=== PATIENT | female | born 1970 | race Hispanic/Latino ===

== ENCOUNTER → 2024-02-28 07:59 | Outpatient (REF) | payer OTHER, SELFPAY ==
[2024-02-28 09:23] LABS: Hematocrit 33.5 % (37.0-47.0); Hemoglobin 10.8 g/dL (12.0-16.0); Mean Corp Hgb Conc. 32.2 g/dL (33.0-37.0); Mean Corpuscular Hgb 24.5 pg (27.0-31.0); Mean Platelet Volume 9.2 fL (7.4-10.4); Platelet Count 422 10^3/uL (130-400); Red Blood Cell Count 4.41 10^6/uL (4.20-5.40); Red Cell Dist. Width 15.3 % (11.5-14.5); Reticulocyte Count 1.8 % (0.4-2.8)
[2024-02-28 10:01] LABS: ALT (SGPT) 46 U/L (0-35); AST (SGOT) 36 U/L (14-36); Albumin 4.3 g/dl (3.5-5.0); Alkaline Phosphatase 119 U/L (38-126); Blood Urea Nitrogen 15 mg/dl (7-17); Calcium 9.3 mg/dl (8.4-10.2); Carbon Dioxide 21 mmol/L (22-30); Chloride 109 mmol/L (98-107); GGTP 124 U/L (12-43); Glucose 99 mg/dl (70-99); Iron 44 ug/dl (37-170); Potassium 3.9 mmol/L (3.5-5.1); Sodium 136 mmol/L (135-145); Total Bilirubin 0.4 mg/dl (0.2-1.3); Total Protein 6.8 g/dl (6.3-8.2); eGFR > 60.00
[2024-02-28 10:07] LABS: Vitamin D, 25-OH*** 32.9 ng/mL (30-80)
[2024-02-28 10:10] LABS: Percent Saturation 10 % (20-50); Total Iron Binding Capacity 431 ug/dl (265-497)
[2024-02-28 10:26] LABS: Ferritin 7.8 ng/ml (11.1-264.0)
[2024-02-28 10:40] LABS: Vitamin B12 > 1000 pg/ml (239-931)
== END ==
LOC: CLINIC 07:59
PROVIDERS: ATTENDING PHYSICIAN Nurse Practitioner Adult Health
DX: R94.5 Abnormal results of liver function studies (principal); D50.0 Iron deficiency anemia secondary to blood loss (chronic); N93.9 Abnormal uterine and vaginal bleeding, unspecified; E55.9 Vitamin D deficiency, unspecified
CPT/HCPCS: 36415; 80053; 82306; 82607; 82728; 82977; 83540; 83550; 84443; 85027; 85045

== ENCOUNTER → 2024-03-12 07:03 | Outpatient (REF) | payer OTHER, SELFPAY | LOC: WDC 07:03 | PROVIDERS: ATTENDING PHYSICIAN Nurse Practitioner Adult Health | DX: Z12.31 Encounter for screening mammogram for malignant neoplasm of breast (principal) | CPT/HCPCS: 77063; 77067 ==

== ENCOUNTER 2024-03-28 09:33 | Emergency (ER) | payer SELFPAY ==
[2024-03-28 09:35] VITALS: BP 119/77
[2024-03-28 10:08] VITALS: BP 134/67
[2024-03-28 10:12] LABS: Urine Albumin Negative (Neg - Trace); Urine Bilirubin Negative (Negative); Urine Character Clear (Clear); Urine Color Yellow; Urine Glucose Negative (Negative); Urine Ketone Negative (Negative); Urine Leukocyte Negative (Negative); Urine Nitrite Negative (Negative); Urine Occult Blood 4+ (Negative); Urine Specific Gravity 1.015 (<1.030); Urine Urobilinogen Negative (Neg - 1+)
[2024-03-28 10:54] LABS: Urine Squamous Cell 21-25 /LPF (Few)
[2024-03-28 10:55] LABS: Urine Amorphous Seen; Urine White Cell 0-2 /HPF (0-5)
[2024-03-28 11:00] VITALS: BP 126/70
[2024-03-28 11:02] LABS: % Basophils 0.8 % (0-2); % Eosinophils 2.3 % (0-6); % Immature Granulocytes 0.3 % (0-0.5); % Lymphocytes 20.5 % (20.5-51.1); % Monocytes 9.3 % (1.7-9.3); % Neutrophils 66.8 % (42.2-75.2); Absolute Basophils 0.1 10^3/uL (0-0.2); Absolute Eosinophils 0.1 10^3/uL (0-0.7); Absolute Lymphocytes 1.2 10^3/uL (1.2-3.4); Absolute Monocytes 0.6 10^3/uL (0.1-0.6); Hematocrit 33.9 % (37.0-47.0); Hemoglobin 11.3 g/dL (12.0-16.0); Mean Corp Hgb Conc. 33.3 g/dL (33.0-37.0); Mean Corpuscular Hgb 25.4 pg (27.0-31.0); Mean Corpuscular Volume 76.2 fL (81.0-99.0); Mean Platelet Volume 8.8 fL (7.4-10.4); Nucleated Red Blood Cells % 0 %; Platelet Count 385 10^3/uL (130-400); Red Blood Cell Count 4.45 10^6/uL (4.20-5.40); Red Cell Dist. Width 16.8 % (11.5-14.5)
[2024-03-28 11:12] LABS: HCG, Serum Qualitative Screen Negative
[2024-03-28 11:17] LABS: ALT (SGPT) 33 U/L (0-35); AST (SGOT) 28 U/L (14-36); Albumin 4.3 g/dl (3.5-5.0); Alkaline Phosphatase 117 U/L (38-126); Blood Urea Nitrogen 12 mg/dl (7-17); Calcium 9.3 mg/dl (8.4-10.2); Carbon Dioxide 22 mmol/L (22-30); Chloride 107 mmol/L (98-107); Glucose 125 mg/dl (70-99); Potassium 3.9 mmol/L (3.5-5.1); Sodium 139 mmol/L (135-145); Total Bilirubin 0.3 mg/dl (0.2-1.3); Total Protein 6.9 g/dl (6.3-8.2); eGFR > 60.00
[2024-03-28 13:10] VITALS: BP 128/72
[2024-03-28 14:06] VITALS: BP 126/83
--- NOTE | 2024-03-28 14:53 | ED.GENMED ---
History of Present Illness
General
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
Source: patient and family
Exam Limitations: none
Time Seen by Provider: 03/28/24 10:31
Nursing documentation reviewed up to this point in time: agreed with
Travel History
Have you had any contact with someone who has COVID-19?: No
Do you have any symptoms of coronavirus? Fever > 100 degrees, chills, cough, shortness of breath, sore throat, loss of taste or smell, muscle aches, or headache?: No
History of Present Illness
History of Present Illness:
53-year-old female presenting to the emergency department today with concerns of light vaginal bleeding over the past 2 weeks also has had some pressure and cramping to the vaginal area and lower abdomen. This has been present denies being very
severe. She has not seen a financial wellness coach in multiple years.
Past History
Past History
ED Past Medical History: Other (Migraine headaches)
ED Past Surgical History:
Patient has exhibited threatening behavior?: No
Social History
Tobacco: Non-smoker
Alcohol: None
Drug: None
Personal:
Living: with family
Employment: Employed (house cleaning)
Family History
Family History: Other
Review of Systems
Review of Systems
Allergies reviewed?: Yes
All Other Systems: ROS reviewed and negative except as documented in HPI and ROS
Phy Exam
Physical Exam
Physical Exam:
GENERAL: Alert , in no apparent distress
EYE: pupils equal and reactive
NECK: Supple, no significant adenopathy.
ENT: o/p clr, mmm.
CARDIAC: Regular rate and rhythm .
LUNGS: Clear breath sounds bilaterally, no acute respiratory distress, no wheezes/rales/rhonchi
ABDOMEN: Pelvic exam with some mild discomfort throughout but no specific focal tenderness soft, without focal tenderness, no r/g, no cvat
NEUROLOGICAL: Alert and oriented, no focal neuro deficits
SKIN: Warm and dry, skin intact.
MUSCULOSKELETAL: No edema, well perfused.
PSYCH: Normal and appropriate interaction.
Course
Orders/Labs/Results
Orders:
Orders
03/28/24 10:03
Urinalysis Reflex To Culture Urgent
Date Specimen was Collected: 03/28/24
Time Specimen was Collected: 10:01
Urine Microscopic Reflex Cult Urgent
03/28/24 10:49
Test Result ONCE
US Pelvis Only (non-obstetric) Urgent
Comment:
Reason For Exam: right peliv pain/bleeding
03/28/24 10:53
Complete Blood Count/With Diff Urgent
Comprehensive Metabolic Panel Urgent
HCG, Serum Qualitative Screen Urgent
Abnormal Lab Results
03/28/24 03/28/24
10:03 10:53
Hgb 11.3 L g/dL
(12.0-16.0)
Hct 33.9 L %
(37.0-47.0)
MCV 76.2 L fL
(81.0-99.0)
MCH 25.4 L pg
(27.0-31.0)
RDW 16.8 H %
(11.5-14.5)
Glucose 125 H mg/dl
(70-99)
Ur Occult Blood Reflex 4+ A
(Negative)
Urine RBC 3-6 A /HPF
(0-2)
03/28/24 10:53
03/28/24 10:53
Vital Signs
Initial and Last Documented VS:
Initial Vital Signs
Temp Pulse Resp BP Pulse Ox
98.1 F 120 18 119/77 99
03/28/24 09:35 03/28/24 09:35 03/28/24 09:35 03/28/24 09:35 03/28/24 09:35
Last Documented Vital Signs
Temp Pulse Resp BP Pulse Ox
98.4 F 110 16 126/83 99
03/28/24 10:09 03/28/24 10:09 03/28/24 10:09 03/28/24 14:06 03/28/24 14:06
MDM/Problems Addressed
MDM/Problems Addressed:
53-year-old female presenting to the emergency department today with concerns of vaginal bleeding described as small amount over the past 2 weeks and cramping ongoing. Here she has some discomfort throughout the pelvic examination minimal
discomfort to the lower abdomen. Ultrasound performed that shows a fibroid uterus but no signs of emergent process.. She was advised for close gynecologic follow-up. Otherwise return precautions given
*Critical Care Note
Total Time (30-74mins, 75-104mins- exclusive of procedures): Not Applicable
ED Attending Note
-
Portions of this chart may have been created with voice recognition software.� Occasional wrong word or��sound alike� substitutions may have occurred due to the inherent limitations of voice recognition software.
Discharge Plan
Departure
Patient Disposition: Home (Routine Discharge)
Date of Disposition: 03/28/24
Time of Disposition: 14:59
Patient with high blood pressure during this ER visit?: No
Condition: Good
Covid-19: Not Applicable
Discharge Problem:
Fibroid uterus
Instructions: Uterine Fibroids (DC)
Prescriptions:
No Action
escitalopram oxalate 10 MG tablet
25 mg PO DAILY
Referrals:
Viviane Loza MD [Active] - Follow up in 5-7 days
Maral Rodriguez NP [Family Provider] -
Activity Restrictions/Additional Instructions:
You came to the emergency department today with concerns of bleeding and discomfort in the pelvic area. Please follow closely with gynecology. Your ultrasound showed fibroids. You can take Motrin for discomfort. Return to the emergency
department for any worsening, new or concerning symptoms.
Interventions
Interventions:
*Risk Screen - Suicide Last Done: 03/28/24 09:37
*General Assessment Last Done: 03/28/24 09:37
*Neglect/Abuse Screening Last Done: 03/28/24 09:37
*ED COVID-19 Vaccine History Last Done: 03/28/24 09:58
ED-Female Genitourinary Assessment Last Done: 03/28/24 10:05
Discharge Date and Time
Print Language: TURKISH
== END 2024-03-28 15:06 | disposition home or self-care (01) ==
LOC: EMR 09:33
PROVIDERS: Physician Assistant; EMERGENCY PHYSICIAN Emergency Medicine; FAMILY PHYSICIAN Nurse Practitioner Adult Health
DX: D25.9 Leiomyoma of uterus, unspecified (principal)
CPT/HCPCS: 99284; 76856; 80053; 81003; 81015; 84703; 85025

== ENCOUNTER → 2024-07-01 06:50 | Outpatient (REF) | payer OTHER, SELFPAY ==
[2024-07-01 09:41] LABS: Hematocrit 37.9 % (37.0-47.0); Hemoglobin 12.7 g/dL (12.0-16.0); Mean Corp Hgb Conc. 33.5 g/dL (33.0-37.0); Mean Corpuscular Hgb 26.5 pg (27.0-31.0); Mean Corpuscular Volume 79.1 fL (81.0-99.0); Mean Platelet Volume 9.3 fL (7.4-10.4); Platelet Count 347 10^3/uL (130-400); Red Blood Cell Count 4.79 10^6/uL (4.20-5.40); Red Cell Dist. Width 14.1 % (11.5-14.5); White Blood Cell Count 4.8 10^3/uL (4.8-10.8)
[2024-07-01 10:17] LABS: ALT (SGPT) 38 U/L (0-35); AST (SGOT) 36 U/L (14-36); Albumin 4.4 g/dl (3.5-5.0); Alkaline Phosphatase 144 U/L (38-126); Blood Urea Nitrogen 10 mg/dl (7-17); Calcium 9.4 mg/dl (8.4-10.2); Carbon Dioxide 24 mmol/L (22-30); Chloride 107 mmol/L (98-107); Glucose 99 mg/dl (70-99); Potassium 4.2 mmol/L (3.5-5.1); Sodium 139 mmol/L (135-145); Total Bilirubin 0.3 mg/dl (0.2-1.3); Total Protein 6.8 g/dl (6.3-8.2); eGFR > 60.00
== END ==
LOC: REG 06:50
PROVIDERS: ATTENDING PHYSICIAN Nurse Practitioner Adult Health
DX: D50.0 Iron deficiency anemia secondary to blood loss (chronic) (principal); R94.5 Abnormal results of liver function studies
CPT/HCPCS: 36415; 80053; 82270; 85027

== ENCOUNTER → 2024-10-23 10:30 | Outpatient (REF) | payer OTHER, SELFPAY | LOC: RAD 10:30 | PROVIDERS: ATTENDING PHYSICIAN Obstetrics & Gynecology Gynecology | DX: N93.9 Abnormal uterine and vaginal bleeding, unspecified (principal); D21.9 Benign neoplasm of connective and other soft tissue, unspecified | CPT/HCPCS: 58340; 76831 ==

== ENCOUNTER 2024-11-26 14:01 | Emergency (ER) | payer SELFPAY ==
[2024-11-26 14:10] VITALS: BP 136/87
[2024-11-26 14:33] LABS: % Basophils 0.8 % (0-2); % Eosinophils 3.6 % (0-6); % Immature Granulocytes 0.3 % (0-0.5); % Lymphocytes 28.8 % (20.5-51.1); % Monocytes 7.5 % (1.7-9.3); Absolute Basophils 0.1 10^3/uL (0-0.2); Absolute Eosinophils 0.3 10^3/uL (0-0.7); Absolute Lymphocytes 2.2 10^3/uL (1.2-3.4); Absolute Monocytes 0.6 10^3/uL (0.1-0.6); Absolute Neutrophils 4.6 10^3/uL (1.4-6.5); Hematocrit 39.1 % (37.0-47.0); Hemoglobin 13.1 g/dL (12.0-16.0); Mean Corp Hgb Conc. 33.5 g/dL (33.0-37.0); Mean Corpuscular Volume 80.5 fL (81.0-99.0); Mean Platelet Volume 9.3 fL (7.4-10.4); Nucleated Red Blood Cells % 0 %; Platelet Count 338 10^3/uL (130-400); Red Blood Cell Count 4.86 10^6/uL (4.20-5.40); Red Cell Dist. Width 14.1 % (11.5-14.5); White Blood Cell Count 7.8 10^3/uL (4.8-10.8)
[2024-11-26 14:47] LABS: ALT (SGPT) 51 U/L (0-35); AST (SGOT) 36 U/L (14-36); Albumin 4.7 g/dl (3.5-5.0); Alkaline Phosphatase 138 U/L (38-126); Blood Urea Nitrogen 11 mg/dl (7-17); Calcium 9.2 mg/dl (8.4-10.2); Carbon Dioxide 21 mmol/L (22-30); Chloride 99 mmol/L (98-107); Glucose 116 mg/dl (70-99); Potassium 3.8 mmol/L (3.5-5.1); Sodium 135 mmol/L (135-145); Total Bilirubin 0.5 mg/dl (0.2-1.3); Total Protein 7.1 g/dl (6.3-8.2); eGFR > 60.00
[2024-11-26 16:55] VITALS: BMI 23.2
[2024-11-26 16:56] VITALS: BP 155/75
[2024-11-26 17:06] VITALS: BP 125/78
[2024-11-26 18:29] LABS: D-Dimer < 0.27 ug/mlFEU (0.00-0.50)
[2024-11-26 18:39] LABS: Troponin I < 0.012 ng/ml
[2024-11-26 18:57] LABS: TSH Reflex To Free T4 2.38 uIU/ml (0.47-4.68)
[2024-11-26 19:00] VITALS: BP 129/76
[2024-11-26 19:29] VITALS: BP 131/79
[2024-11-26] MEDS: TOPROL XL 12.5 MG PO (19:30)
--- NOTE | 2024-11-26 20:21 | ED.GENMED ---
History of Present Illness
General
Chief Complaint: Heart Rate Problem
Source: patient and family
Exam Limitations: none
Time Seen by Provider: 11/26/24 16:37
Nursing documentation reviewed up to this point in time: agreed with
History of Present Illness
History of Present Illness:
54-year-old female with past medical history of anxiety who presents to the ER with her family for evaluation of palpitations and tachycardia. 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
arrival. After making the bed she says that she began to feel palpitations and her heart racing. She says that she gets the symptoms with anxiety occasionally and typically they resolve with a deep breath and so she took a few deep breaths but
symptoms were not resolving. She then went down to her car and took a dose of her as needed alprazolam which was prescribed by her primary doctor as needed for severe panic/anxiety. She took a dose of alprazolam but this did not improve her
symptoms at all and so she came to the ER to be evaluated. She says that on arrival in the ER she was still symptomatic but by the time of my assessment her symptoms have completely resolved. She said she did have some mild dizziness during the
episode but did not have any chest pain, shortness of breath. She was in her normal state of health prior to onset. She says she has no known cardiac history and has never seen a field installation technician.
Past History
Past History
ED Past Medical History: Other (Migraine headaches)
ED Past Surgical History:
Patient has exhibited threatening behavior?: No
Social History
Tobacco: Non-smoker
Alcohol: None
Drug: None
Personal:
Living: with family
Employment: Employed (house cleaning)
Family History
Family History: Other
Review of Systems
Review of Systems
All Other Systems: ROS reviewed and negative except as documented in HPI and ROS
Constitutional: Denies fever
EENT: Denies sore throat or runny nose
Respiratory: Denies cough or trouble breathing
Cardiac: Reports palpitations; Denies chest pain or syncope
ABD/GI: Denies abdominal pain, nausea or vomiting
: Denies flank pain
Musculoskeletal: Denies edema, neck pain or back pain
Neurological: Reports dizzy; Denies headache
Phy Exam
Physical Exam
Physical Exam:
General: Awake, alert, oriented x3; no acute distress
Head: Normocephalic, atraumatic
Eyes: Conjunctiva normal, EOMI
Throat: Airway intact, handling secretions
Neck: Trachea midline, supple without meningismus
Lungs: Clear to auscultation bilaterally, no wheezing, rales, rhonchi
Heart: Regular rate and rhythm, no murmurs, gallops, or rubs�triage tachycardia resolved
Abd: Soft, non distended, nontender
Neuro: No gross deficit
Skin: no rash
Extremities: No edema in extremities, equal pulses in all extremities
Scores
Heart Failure Risk
Heart Failure Risk Score: Not Applicable
Heart Score for Chest Pain Patients
STEMI patient?: Not applicable
Withdrawal Assessment of Alcohol
Withdrawal Assessment Completed?: Not applicable
Course
Orders/Labs/Results
Orders:
Orders
11/26/24 14:02
Electrocardiogram (*1) Urgent
Reason for Study: Palpitations
EKG- Treatment ONCE
11/26/24 14:17
Complete Blood Count/With Diff Urgent
Comprehensive Metabolic Panel Urgent
11/26/24 15:19
Electrocardiogram (*1) Urgent
Reason for Study: Bradycardia / Tachycardia
Electrocardiogram (*1) Urgent
Reason for Study: Palpitations
Comment: completed prior to this RN assuming care.
EKG- Treatment ONCE
11/26/24 15:26
Electrocardiogram (*1) Urgent
Reason for Study: Tachycardia
EKG- Treatment ONCE
11/26/24 17:41
Electrocardiogram (*1) Urgent
Reason for Study: Bradycardia / Tachycardia
EKG- Treatment ONCE
11/26/24 18:07
D-Dimer Urgent
TSH Reflex To Free T4 Urgent
Troponin I Urgent
11/26/24 19:09
Metoprolol Xl [Toprol Xl] 12.5 mg PO NOW STA
Abnormal Lab Results
11/26/24
14:17
MCV 80.5 L fL
(81.0-99.0)
Carbon Dioxide 21 L mmol/L
(22-30)
Glucose 116 H mg/dl
(70-99)
ALT 51 H U/L
(0-35)
Alkaline Phosphatase 138 H U/L
(38-126)
11/26/24 14:17
11/26/24 14:17
Vital Signs
Initial and Last Documented VS:
Initial Vital Signs
Temp Pulse Resp BP Pulse Ox
36.7 C 130 20 136/87 100
11/26/24 14:10 11/26/24 14:10 11/26/24 14:10 11/26/24 14:10 11/26/24 14:10
Last Documented Vital Signs
Temp Pulse Resp BP Pulse Ox
36.7 C 98 18 131/79 100
11/26/24 19:35 11/26/24 19:30 11/26/24 19:29 11/26/24 19:30 11/26/24 19:29
MDM/Problems Addressed
Differential Diagnosis Includes:
Sinus tachycardia, atrial tachycardia, atrial flutter/atrial fib, hyperthyroidism, anxiety/panic
MDM/Problems Addressed:
54-year-old female presents for evaluation of palpitations and tachycardia that started at work earlier and have completely resolved. On my assessment her vitals are normal including heart rate in the 80s. Her EKG from triage shows what appears to
be a sinus tachycardia�narrow complex and regular with visible P waves similar morphology to prior EKGs; could also be a flutter and atrial tachycardia although less likely based on P wave morphology. I did discuss the case with cardiology to
review EKG they agree most likely sinus tachycardia although cannot completely rule out atrial tachycardia. She had labs sent in triage including a CBC and a CMP which were unremarkable. Her D-dimer is negative troponin undetectable. Thyroid
studies normal. Plan to start on low-dose beta-gita. Stable for discharge can follow-up with cardiology as an outpatient for further assessment. Patient is very comfortable with this plan. We spoke in detail about return precautions all
questions answered.
*Pulse Oximetry
Patient hypoxic: no
*EKG
Interpreted by ED Provider?: Yes
Heart Rate: 148
Rate: tachycardiac
Rhythm: sinus
[place]: normal axis
Interval: normal interval
QRS Pattern: low voltage and right bundle branch block (Incomplete)
Ischemia: no ischemia
*Critical Care Note
Total Time (30-74mins, 75-104mins- exclusive of procedures): Not Applicable
Data Reviewed
Source: patient and family
Patient Management
Discussion with other providers: [employer] (Discussed with cardiology)
ED Attending Note
-
Portions of this chart may have been created with voice recognition software.� Occasional wrong word or��sound alike� substitutions may have occurred due to the inherent limitations of voice recognition software.
Discharge Plan
Departure
Patient Disposition: Home (Routine Discharge)
Date of Disposition: 11/26/24
Time of Disposition: 19:08
Patient with high blood pressure during this ER visit?: Yes
Discharge Problem:
Palpitations, Tachycardia
Instructions: Palpitations (DC)
Prescriptions:
New
metoprolol succinate [Toprol XL] 25 mg tablet extended release 24 hr
12.5 mg PO DAILY Qty: 30 0RF
No Action
escitalopram oxalate 10 MG tablet
25 mg PO DAILY
Referrals:
Jose Nguyen MD [Active] - Call in 1-3 days for appt
Activity Restrictions/Additional Instructions:
Thank you for visiting the Emergency Department at [facility].
1. Please schedule a follow up appointment as directed. Call first thing tomorrow morning to make an appointment.
2. If indicated, please take your medications as instructed and indicated on discharge paperwork.
3. If any of your symptoms do not improve, or persist, or become more severe within 6-12 hours, please return to the emergency department for further care.
4. Please return to the emergency department if you develop a headache, neck pain/stiffness, fever greater than 100.4F, chest pain, shortness of breath, persistent nausea, vomiting, slurred speech, difficulty walking, numbness/tingling, weakness,
signs of infection or any other symptoms that are worrisome to you.
Please call [phone] if you have any questions.
Interventions
Interventions:
*Risk Screen - Suicide Last Done: 11/26/24 14:10
*General Assessment Last Done: 11/26/24 14:10
*Neglect/Abuse Screening Last Done: 11/26/24 14:10
ED- Fall Risk Assessment Last Done: 11/26/24 19:35
*ED COVID-19 Vaccine History Last Done: 11/26/24 17:07
*Nursing Disposition Last Done: 11/26/24 19:35
ED- Cardiac Assessment Last Done: 11/26/24 18:38
ED- Pulmonary Assessment Last Done: 11/26/24 18:38
Discharge Date and Time
Print Language: ECUADOREAN
== END 2024-11-26 19:50 | disposition home or self-care (01) ==
LOC: EMR 14:01
PROVIDERS: Emergency Medicine; EMERGENCY PHYSICIAN Emergency Medicine
DX: R00.2 Palpitations (principal); R42 Dizziness and giddiness; R00.0 Tachycardia, unspecified; R03.0 Elevated blood-pressure reading, without diagnosis of hypertension; I45.10 Unspecified right bundle-branch block; G43.909 Migraine, unspecified, not intractable, without status migrainosus; F41.9 Anxiety disorder, unspecified; Z86.16 Personal history of COVID-19
CPT/HCPCS: 99284; 80053; 84443; 84484; 85025; 85379; 93005

== ENCOUNTER 2024-12-06 06:21 | Day surgery (SDC) | payer OTHER, SELFPAY ==
[2024-12-06] VITALS (7 sets, daily range): BP systolic 121–138; BP diastolic 69–78; BMI 23.6
[2024-12-06 08:17] LABS: HCG, Urine Qualitative Screen Negative
[2024-12-06] MEDS: NORMOSOL-R/PLASMALYTE-A 1000 IV (08:21)
== END 2024-12-06 14:08 | disposition home or self-care (01) ==
LOC: SDS 06:21
PROVIDERS: ATTENDING PHYSICIAN Obstetrics & Gynecology Gynecology
DX: N84.0 Polyp of corpus uteri (principal); N93.8 Other specified abnormal uterine and vaginal bleeding
CPT/HCPCS: 58558; 88305; 81025

== ENCOUNTER → 2024-12-18 07:17 | Outpatient (REF) | payer OTHER, SELFPAY | LOC: RCS 07:17 | PROVIDERS: ATTENDING PHYSICIAN Internal Medicine Interventional Cardiology; FAMILY PHYSICIAN Nurse Practitioner Adult Health | DX: R00.2 Palpitations (principal) | CPT/HCPCS: 93306 ==

== ENCOUNTER → 2024-12-31 08:41 | Outpatient (REF) | payer OTHER, SELFPAY ==
[2024-12-31 09:41] LABS: Hemoglobin 12.3 g/dL (12.0-16.0); Mean Corp Hgb Conc. 34.2 g/dL (33.0-37.0); Mean Corpuscular Hgb 27.2 pg (27.0-31.0); Mean Corpuscular Volume 79.5 fL (81.0-99.0); Mean Platelet Volume 9.5 fL (7.4-10.4); Platelet Count 330 10^3/uL (130-400); Red Blood Cell Count 4.53 10^6/uL (4.20-5.40); Red Cell Dist. Width 14.5 % (11.5-14.5); White Blood Cell Count 5.1 10^3/uL (4.8-10.8)
[2024-12-31 10:15] LABS: ALT (SGPT) 47 U/L (0-35); AST (SGOT) 30 U/L (14-36); Alkaline Phosphatase 131 U/L (38-126); Blood Urea Nitrogen 12 mg/dl (7-17); Calcium 8.9 mg/dl (8.4-10.2); Carbon Dioxide 20 mmol/L (22-30); Chloride 107 mmol/L (98-107); Glucose 98 mg/dl (70-99); Potassium 4.1 mmol/L (3.5-5.1); Sodium 137 mmol/L (135-145); Total Bilirubin 0.6 mg/dl (0.2-1.3); Total Protein 6.4 g/dl (6.3-8.2); eGFR > 60.00
[2024-12-31 10:34] LABS: Vitamin D, 25-OH*** 37.7 ng/mL (30-80)
== END ==
LOC: REG 08:41
PROVIDERS: ATTENDING PHYSICIAN Nurse Practitioner Adult Health
DX: D50.0 Iron deficiency anemia secondary to blood loss (chronic) (principal); R94.5 Abnormal results of liver function studies; E55.9 Vitamin D deficiency, unspecified
CPT/HCPCS: 36415; 80053; 82306; 85027

== ENCOUNTER → 2025-02-03 08:08 | Outpatient (REF) | payer OTHER, SELFPAY ==
[2025-02-03 08:46] LABS: Hemoglobin 10.8 g/dL (12.0-16.0); Mean Corp Hgb Conc. 31.8 g/dL (33.0-37.0); Mean Corpuscular Hgb 26.7 pg (27.0-31.0); Mean Corpuscular Volume 84.2 fL (81.0-99.0); Mean Platelet Volume 9.2 fL (7.4-10.4); Platelet Count 320 10^3/uL (130-400); Red Blood Cell Count 4.04 10^6/uL (4.20-5.40); Red Cell Dist. Width 14.2 % (11.5-14.5); White Blood Cell Count 5.1 10^3/uL (4.8-10.8)
== END ==
LOC: CLINIC 08:08
PROVIDERS: ATTENDING PHYSICIAN Nurse Practitioner Adult Health
DX: N93.9 Abnormal uterine and vaginal bleeding, unspecified (principal); D50.0 Iron deficiency anemia secondary to blood loss (chronic)
CPT/HCPCS: 36415; 85027

== ENCOUNTER → 2025-03-31 09:12 | Outpatient (REF) | payer OTHER, SELFPAY ==
[2025-03-31 10:56] LABS: ALT (SGPT) 39 U/L (0-35); AST (SGOT) 29 U/L (14-36); Alkaline Phosphatase 102 U/L (38-126); Total Bilirubin 0.3 mg/dl (0.2-1.3); Total Protein 6.5 g/dl (6.3-8.2)
[2025-03-31 18:25] LABS: Hepatitis B Surface Antigen Negative (Negative)
[2025-03-31 18:43] LABS: Hepatitis B Core Ab, Total Negative (Negative); Hepatitis B Surface Antibody Negative; Hepatitis C Antibody Negative (Negative)
== END ==
LOC: CLINIC 09:12
PROVIDERS: ATTENDING PHYSICIAN Nurse Practitioner Adult Health
DX: R94.5 Abnormal results of liver function studies (principal)
CPT/HCPCS: 36415; 80076; 86704; 86706; 86803; 87340

== ENCOUNTER → 2025-04-18 13:16 | Outpatient (REF) | payer OTHER, SELFPAY | LOC: WDC 13:16 | PROVIDERS: ATTENDING PHYSICIAN Nurse Practitioner Adult Health | DX: Z12.31 Encounter for screening mammogram for malignant neoplasm of breast (principal) | CPT/HCPCS: 77063; 77067 ==